=== PATIENT | male | born 1965 | race Caucasian/White ===

== ENCOUNTER 2023-07-23 03:48 | Emergency (ER) | payer MEDICARE, SELFPAY ==
[2023-07-23 03:49] VITALS: BP 169/109; PULSE 72; RESP 16; TEMP 36.5; O2SAT 100
--- NOTE | 2023-07-23 03:54 | ED_ITS ---
HPI - General Adult General Stated complaint: PSYCH Time Seen by Provider: 07/23/23 03:49 History of Present Illness HPI narrative: Patient arrived by ambulance from [place] after requesting to come to [place]. He had called our hospital main number earlier asking if he could come to the hospital to get his psych meds refilled. Then he called 911 to have the ambulance bring him to our ED - he refused to go to [place] ED. In the ambulance he initially told them that he was depressed and anxious and needed his medications refilled. But on the way he became argumentative and angry, the EMS crew told us, without any provocation. On arrival to our ED he is initially evasive, won't answer questions and won't let us interview him. The he said in front of the nurses and I that he was anxious, depressed and just want to - just let me . When I told him that we would start a psych assessment and work on getting him help, possibly admitted, then he became angry. Then he demanded that we arrange a ride for him back to [place]. When I refused he demanded to talk to the police. He told us he would not answer any of our questions and refused to let us examine him after we got vital signs. Exam Narrative Exam Narrative: Patient refuses to allow me to exam him. BP 169/109, P 72, RR 16, T 97.7F, POx 100% on RA Medical Decision Making MDM Narrative Medical decision making narrative: Patient refusing any care. He wanted to call the police so we gave him a phone. He then called the police, who called our information security associate to see if we are ok. The patient said he wants to leave and will wait in the lobby for a ride home. Discharge Plan Discharge Chief Complaint: Psychiatric Symptoms Clinical Impression: Outbursts of explosive behavior, Depression Patient Disposition: Home, Self-Care Time of Disposition Decision: 04:05 Instructions: Depression (ED) Stand Alone Forms: Portal Instructions
--- NOTE | 2023-07-23 03:57 | PC.NURSE ---
Patient arrived via EMS with complaint of being depressed and being out of his Effexor 25mg x3 days. EMS reported that when they arrived to his house, he ambulated out to them and was cooperative and calm for part of the transport, then his demeanor changed and he became slightly aggressive and agitated. When the patient arrived to the ED, he would not speak or answer questions, other than to state that he could not move himself over to the cart. Patient allowed us to get a set of vitals, and did speak to state that he takes Effexor and that is the medication he is out of. At this time, Dr Aleman entered the room and began to ask the patient what brought him to the ER [facility]. The patient stated that he is out of his meds, does not feel good, is sick and needs medications. He wants to and just wants us to let him . Dr Aleman asked him about psychiatric care, patient states he does have a psychiatrist that is through [facility]. Dr Aleman stated that we would need to get him admitted for inpatient care and would set him up to speak to someone at [facility]. At this point, the patient became very angry, stated that he refused to be placed as inpatient anywhere, he did not want the care to continue any further, he wanted to be discharged and go home. Dr. Aleman attempted to do a physical exam, the patient told Dr Aleman to stay away from him, he was refusing care and did not want anyone to touch him. The patient said that he needed a ride home, Dr Aleman said he would have to find his own ride since he will be leaving [place], the patient asked to use a phone so he could call the police and report us for refusing to give him a a ride home. The patient is provided a phone. This entire encounter is witnessed by this RN as well as the other RNs on shift at this time. Security and compressed yeast supervisor are called.
== END 2023-07-23 04:20 | disposition home or self-care (01) ==
PROVIDERS: Emergency Provider Emergency Medicine
DX: F32.A Depression, unspecified (principal); F91.8 Other conduct disorders
CPT/HCPCS: 99283

== ENCOUNTER 2023-09-06 02:40 | Emergency (ER) | payer MEDICARE, SELFPAY ==
[2023-09-06] VITALS (21 sets, daily range): BP systolic 113; BP diastolic 79; PULSE 86–105; RESP 9–24; TEMP 36.6; O2SAT 96–100; BMI 25.8
--- NOTE | 2023-09-06 02:41 | ECG_ITS ---
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
--- OUTSIDE RECORDS SUMMARY | 2023-09-06 02:50 | XMS_ITS | CCD ---
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 Name Role Phone FABRIZIO SANTORO Unavailable Unavailable FABRIZIO SANTORO Unavailable Unavailable FABRIZIO SANTORO Unavailable Unavailable NO FAMILY, PHYSICIAN Primary Care Provider Unava ilable TRAVIS Tee Emergency Provider MD Carlos Navarretemi Admit Provider MD Carlos Navarretemi Attending Provider [phone] Leland Finney Attending Unavailab Tanner Montanez Admitting Unavailable NO FAMILY, PHYSICIAN Primary Care Unavailable Kelly Douglas Consulting Unavailable Sheryl Salazar Consulting Unavailable Mitzi Guadarrama Consulting Unavailable Marialuisa Perla Consulting Unavailable Jacqueline Adler Consulting Unavailable Debora Kenny Consulting Unavailable Angie Andry K Consulting Unavailable DialShannan saucedaa M Consulting Unavailable Isaias Rodriguez Consulting Unavailable Poli Lopez Consulting Unavailable Roddy Serrano Consulting UnavailRodo Colemna Consulting Unavailable Kassie Aj Consulting Unavailable [place] Consulting Unavailable Urvashi Mckeon Consulting UnavailAmos Ronquillo Consulting Unavailable Gildardo Orellana Consulting Unavailable Beto Sousa Consulting Unavailable Shelly Castellanos Consulting Unavailable Felix Ochoa Consulting Unavailable Conor Parks Consulting Unavailable Casey Osborne Consulting Unavailable Martine Hughes Consulting Unavailable Dami Hirsch Consulting Unavailable Gustabo Helton Consulting Unavailab Bernabe Crowder Consulting Unavailable Mariano Jean Consulting Unavailable Almludmilali, Khaled Consulting Unavailable Ron, Chandana Consulting Unavailable Ayanna Greco Consulting Unavailable Portillo Decker Consulting Unavailable MiniMilton mckee Consulting Unavailable ObZainab patino Consulting Unavailable Dami Thapa Consulting Unavailable DaromaEssie jara Consulting Unavailable Angela Arboleda Consulting Unavailable Annie Cotter Consulting Unavailable Reg Church Consulting Unavailable Timoteo Hung Consulting Unavailable Ila Andrew Consulting Unavailable Carla Steiner Consulting Unavailable Yeimi Whaley Consulting Unavailable NO PCP, NO PCP Primary Care Unavailable CARLITO DIALLO Attending Unavailable CARLITO DIALLO Attending Unavailable CARLITO DIALLO Referring Unavailable NO PCP, NO PCP Primary Care Unavailable NO PCP, NO PCP Primary Care Unavailable ALEXIA JIANG Attending Unavailable NO PCP, NO PCP Primary Care Unavailable MILES CORNEJO Attending Unavailabl e MILES CORNEJO Referring Unavailabl e NO PCP, NO PCP Primary Care Unavailable MILES CORNEJO Attending Unavailabl e MILES CORNEJO Referring Unavailabl e NO PCP, NO PCP Primary Care Unavailable NO PCP, NO PCP Primary Care Unavailable MILES CORNEJO Attending Unavailabl e PAULO AYOUB Admitting Unavailab le Allergies Allergy Classification Reported Allergen(s) Allergy Type Date of Onset Reaction(s) Facility (1 source) bee venom Drug allergy (disorder) 11-26-2016 [facility] (1 source) danazol Drug Allergy 11-26-2016 [facility] (1 source) lamoTRIgine Drug Allergy 11-26-2016 [facility] (1 source) PARoxetine Drug Allergy 11-26-2016 [facility] (1 source) sertraline Drug Allergy 11-26-2016 [facility] (1 source) venlafaxine Drug Allergy 11-26-2016 [facility] (1 source) Ragweed Drug allergy (disorder) 11-26-2016 [facility] (4 sources) lamoTRIgine; Translations: [lamotrigine] Drug Allergy 12-01-2016 [facility] (4 sources) Morphine; Translations: [morphine] Drug Allergy 08-08-2023 [facility] (1 source) ARIPiprazole; Translations: [ARIPIPRAZOLE] Drug Allergy 12-01-2016 [facility] (1 source) PARoxetine; Translations: [PAROXETINE] Drug Allergy 12-01-2016 [facility] (1 source) Sertraline; Translations: [SERTRALINE HCL] Drug Allergy 12-01-2016 [facility] (1 source) Valproate; Translations: [DIVALPROEX SODIUM] Drug Allergy 12-01-2016 [facility] Medications Current Medications Medication Drug Class(es) Dates Sig (Normalized) Sig (Original) aspirin 81 mg chewable tablet (1 source) Platelet Aggregation Inhibitor, Nonsteroidal Anti-inflammatory Drug Start: 08-22-2023 take 1 tablet by mouth once daily Aspirin (Children's Aspirin) 81 mg Tablet,Chewable Active 81 MG PO Daily August 22, 2023 12:00am atorvastatin 40 mg oral tablet (1 source) HMG-CoA Reductase Inhibitor Start: 08-22-2023 take 40 mg by mouth once daily in the evening Atorvastatin Active 40 MG PO Every evening August 22, 2023 12:00am cholecalciferol 0.01 mg oral tablet (1 source) Vitamin D Start: 08-21-2023 take 1 tablet by mouth once daily Cholecalciferol (Vitamin D3) (Vitamin D3) 10 mcg (400 unit) Tablet Active 20 MCG PO Daily 60 August 21, 2023 12:00am 24 hr paliperidone 3 mg extended release oral tablet (1 source) Atypical Antipsychotic Start: 08-21-2023 take 3 mg by mouth once daily Paliperidone Active 3 MG PO Daily August 21, 2023 12:00am venlafaxine 25 mg oral tablet (3 sources) Serotonin and Norepinephrine Reuptake Inhibitor Start: 08-16-2023 End: 08-21-2023 take 25 mg by mouth twice daily Venlafaxine Active 25 MG PO Twice daily 60 August 22, 2023 12:00am Problems Problem Classification Problem Date Documented Date Episodic/Chronic Administrative/social admission (1 source) Encounter for issue of repeat prescription; Translations: [Encounter for issue of repeat prescription] Onset: 09-01-2023 Episodic Coronary atherosclerosis and other heart disease (4 sources) Atherosclerotic heart disease of koi coronary artery without angina pectoris; Translations: [History of myocardial infarction] Onset: 11-28-2016 08-21-2023 Chronic Mood disorders (2 sources) Depressive disorder; Translations: [Depression] 08-17-2023 Chronic Mood disorders (5 sources) Major depressive disorder, single episode, unspecified; Translations: [Mood disorders] Onset: 11-26-2016 Nonspecific chest pain (2 sources) Chest pain, unspecified; Translations: [Chest pain] Onset: 08-08-2023 Episodic Other injuries and conditions due to external causes (1 source) Cold exposure Onset: 09-02-2023 Episodic Other injuries and conditions due to external causes (1 source) Effect of reduced temperature, unspecified, initial encounter; Translations: [Effect of reduced temperature, unspecified, initial encounter] Onset: 08-08-2023 Episodic Other screening for suspected conditions (not mental disorders or infectious disease) (4 sources) Thyroid function tests abnormal; Translations: [Abnormal results of thyroid function studies] Onset: 08-16-2023 08-19-2023 Episodic Residual codes; unclassified (2 sources) Restlessness and agitation; Translations: [Restlessness and agitation] 08-16-2023 Chronic Residual codes; unclassified (3 sources) Restlessness and agitation; Translations: [Other and unspecified special symptoms or syndromes, not elsewhere classified] Onset: 08-16-2023 08-16-2023 Chronic Residual codes; unclassified (2 sources) Hallucinations; Translations: [Hallucinations, unspecified] 08-16-2023 Episodic Residual codes; unclassified (2 sources) Hallucinations, unspecified; Translations: [Hallucinations] 08-16-2023 Episodic Schizophrenia and other psychotic disorders (3 sources) Psychotic disorder; Translations: [Unspecified psychosis not due to a substance or known physiological condition] Onset: 08-16-2023 08-17-2023 Chronic Unclassified (1 source) Medical Screening Onset: 09-04-2023 Unclassified (1 source) Med Refill Onset: 09-01-2023 Unclassified (1 source) ill Onset: 08-08-2023 Results Test Name Value Interpretation Reference Range Facility BASIC METABOLIC PANLon 09-04 Anion gap [Moles/Vol] 10 mmol/L Normal 5-15 [facility] Comment on above: Performed By: #### C BCA, BMP, 55195-9 #### [facility] ([id number]) [address] [place] [address] 36053 Calcium [Mass/Vol] 8.9 mg/dL Normal 8.5-10.5 [facility] Comment on above: Performed By: #### C JEAN MARIE KAPOOR, 76061-5 #### [facility] ([id number]) [address] [place] [address] 98233 Chloride [Moles/Vol] 100 mmol/L Normal 98-109 [facility] Comment on above: Performed By: #### C JEAN MARIE KAPOOR, 74447-9 #### [facility] ([id number]) [address] [place] [address] 85503 CO2 [Moles/Vol] 29 mmol/L Normal 22-32 [facility] Comment on above: Performed By: #### C JEAN MARIE KAPOOR, 10699-5 #### [facility] ([id number]) [address] [place] [address] 13419 Creatinine [Mass/Vol] 0.95 mg/dL Normal 0.70-1.20 [facility] Comment on above: Result Comment: METH OD TRACEABLE TO IDMS STANDARD Performed By: #### C JEAN MARIE KAPOOR, 88730-9 #### [facility] ([id number]) [address] [place] [address] 06244 eGFR (CKD-EPI) NON-RACE DEPENDENT >90 Normal >59 [facility] Comment on above: Result Comment: Reported eGFR is based on the CKD-EPI 2020 equation that does not use a race coefficient. Performed By: #### C JEAN MARIE KAPOOR, 86661-0 #### [facility] ([id number]) [address] [place] [address] 22037 Glucose [Mass/Vol] 144 mg/dL High 65-99 [facility] Comment on above: Performed By: #### C JEAN MARIE KAPOOR, 05991-9 #### [facility] ([id number]) [address] [place] [address] 51695 Potassium [Moles/Vol] 3.5 mmol/L Normal 3.5-5.0 [facility] Comment on above: Performed By: #### C JEAN MARIE KAPOOR, 36645-0 #### [facility] ([id number]) [address] [place] [address] 97184 Sodium [Moles/Vol] 139 mmol/L Normal 134-146 [facility] Comment on above: Performed By: #### C EMELIA, JEAN MARIE, 55936-0 #### [facility] ([id number]) [address] [place] [address] 43473 Urea nitrogen [Mass/Vol] 15 mg/dL Normal 5-23 [facility] Comment on above: Performed By: #### JEAN MARIE King BCA, 46623-7 #### [facility] ([id number]) [address] [place] [address] 76437 CBC AND AUTO DIFFon 09-04-19 24 ABSOLUTE BASOPHIL 0.1 X10E9/L Normal 0.0-0.2 [facility] Comment on above: Performed By: #### Christine KAPOOR, BMP, 37705-9 #### [facility] ([id number]) [address] [place] [address] 71229 ABSOLUTE NEUTROPHIL 6.2 X10E9/L Normal 1.5-6.6 [facility] Comment on above: Performed By: #### C EMELIA, BMP, 04505-0 #### [facility] ([id number]) [address] [place] [address] 37517 Basophils/100 WBC (Bld) 1.3 % Normal [facility] Comment on above: Performed By: #### Christine KAPOOR, BMP, 93516-2 #### [facility] ([id number]) [address] [place] [address] 07125 Eosinophils (Bld) [#/Vol] 0.3 10*3/uL Normal 0.0-0.4 [facility] Comment on above: Performed By: #### JEAN MARIE King BCA, 27278-0 #### [facility] ([id number]) [address] [place] [address] 05198 Eosinophils/100 WBC (Bld) 3.5 % Normal [facility] Comment on above: Performed By: #### Christine KAPOOR [facility], 24602-4 #### [facility] ([id number]) [address] [place] [address] 11680 Erythrocyte distribution width (RBC) [Ratio] 14.2 % Normal 11.5-15.0 [facility] Comment on above: Performed By: #### JEAN MARIE King BCA, 21674-2 #### [facility] ([id number]) [address] [place] [address] 80323 Hematocrit (Bld) [Volume fraction] 40.2 % Normal 39-49 [facility] Comment on above: Performed By: #### Christine KAPOOR [facility], 17511-1 #### [facility] ([id number]) [address] [place] [address] 11887 Hemoglobin (Bld) [Mass/Vol] 13.9 g/dL Normal 13.0-17.0 [facility] Comment on above: Performed By: #### JEAN MARIE King BCA, 70466-5 #### [facility] ([id number]) [address] [place] [address] 33974 Lymphocytes (Bld) [#/Vol] 1.8 10*3/uL Normal 1.0-3.5 [facility] Comment on above: Performed By: #### JEAN MARIE King BCA, 99350-8 #### [facility] ([id number]) [address] [place] [address] 89077 Lymphocytes/100 WBC (Bld) 20.0 % Normal [facility] Comment on above: Performed By: #### JEAN MARIE King BCA, 06943-4 #### [facility] ([id number]) [address] [place] [address] 39856 MCH (RBC) [Entitic mass] 31.7 pg Normal 27-34 [facility] Comment on above: Performed By: #### JEAN MARIE King BCA, 44300-9 #### [facility] ([id number]) [address] [place] [address] 79850 MCHC (RBC) [Mass/Vol] 34.6 g/dL Normal 32-36 [facility] Comment on above: Performed By: #### JEAN MARIE King BCA, 84853-4 #### [facility] ([id number]) [address] [place] [address] 70465 MCV (RBC) [Entitic vol] 92 fL Normal 80-100 [facility] Comment on above: Performed By: #### JEAN MARIE King BCA, 55916-9 #### [facility] ([id number]) [address] [place] [address] 26814 Monocytes (Bld) [#/Vol] 0.5 10*3/uL Normal 0-0.9 [facility] Comment on above: Performed By: #### JEAN MARIE King BCA, 94779-7 #### [facility] ([id number]) [address] [place] [address] 63235 Monocytes/100 WBC (Bld) 5.9 % Normal [facility] Comment on above: Performed By: #### JEAN MARIE King BCA, 22529-6 #### [facility] ([id number]) [address] [place] [address] 07473 Neutrophils/100 WBC (Bld) 69.3 % Normal [facility] Comment on above: Performed By: #### JEAN MARIE King BCA, 70881-5 #### [facility] ([id number]) [address] [place] [address] 24732 Platelet mean volume (Bld) [Entitic vol] 7.0 fL Normal 7-12 [facility] Comment on above: Performed By: #### C JEAN MARIE KAPOOR, 83878-1 #### [facility] ([id number]) [address] [place] [address] 33998 Platelets (Bld) [#/Vol] 320 10*3/uL Normal 150-450 [facility] Comment on above: Performed By: #### C JEAN MARIE KAPOOR, 51756-5 #### [facility] ([id number]) [address] [place] [address] 87605 RBC COUNT 4.39 X10E12/L Normal 4.10-5.70 [facility] Comment on above: Performed By: #### C JEAN MARIE KAPOOR, 08621-5 #### [facility] ([id number]) [address] [place] [address] 84422 WBC (Bld) [#/Vol] 8.9 10*3/uL Normal 4.0-11.0 [facility] Comment on above: Performed By: #### C JEAN MARIE KAPOOR, 86014-1 #### [facility] ([id number]) [address] [place] [address] 35024 TROPONIN Ion 09-04-2023 Troponin I.cardiac [Mass/Vol] 0.11 ng/mL High 0.00-0.04 [facility] Comment on above: Result Comment: Concentrations greater than or equal to 0.05 ng/ml are considered elevated. Elevations of Troponin may be due to causes other than myocardial ischemia. Recommend serial Troponin testing be performed. Performed By: #### 1 0839-9 #### [facility] ([id number]) [address] [place] [address] Troponin I.cardiac [Mass/Vol] 0.09 ng/mL High 0.00-0.04 [facility] Comment on above: Result Comment: Concentrations greater than or equal to 0.05 ng/ml are considered elevated. Elevations of Troponin may be due to causes other than myocardial ischemia. Recommend serial Troponin testing be performed. Performed By: #### C EMELIA, [facility], 44627-0 #### [facility] ([id number]) [address] [place] [address] 86471 XR CHEST 1 VWon 09-04-2023 XR CHEST 1 VW XR CHEST 1 VW Clinical History: Chest pain. Portable Upright chest: 09/04/2023 Comparison: 09/02/2023 Findings: A single portable view of the chest was obtained. There is no confluent alveolar opacity. No pneumothorax or pleural effusion is present. Mediastinal contours are within normal limits. IMPRESSION: No acute infiltrate. Finalized by Clyde Holland MD on 09/04/2023 7:06 AM Normal [facility] XR CHEST 1 VWon 09-02-2023 XR CHEST 1 VW XR CHEST 1 VW Single view chest History:cough Difficulty breathing, shortness of breath Comparison: 08/08/2023 Findings: Single portable view of the chest. Stable cardiomediastinal silhouette. No focal opacity, effusion or pneumothorax. Impression: No evidence of acute cardiopulmonary process. Finalized by Felix Nickerson MD on 09/02/2023 2:12 AM Normal [facility] ECG 12 lead ECGon 08-20-2023 ECG 12 lead ECG [facility] [place] [address] [place] [address] 16816 Electrocardiograph Report Signed Patient: Vincent Javier MR#: [id number] 70 : 1965 Acct:[id number] Age/Sex: 57 / M ADM Date: 08/16/23 Loc: 1S Room: [address] [place] [address] Type: ADM IN Attending Dr: Tanner Navarrete MD Ordering Provider: Leland Finney MD Date of Service: 08/20/23 ECG/ECG 12 lead ECG: SOB, chest pain Copies to: Test Reason : Blood Pressure : / mmHG Vent. Rate : 082 BPM Atrial Rate : 082 BPM P-R Int : 176 ms QRS Dur : 090 ms QT Int : 378 ms P-R-T Axes : 059 061 048 degrees QTc Int : 441 ms Sinus rhythm with premature atrial complexes Otherwise normal ECG When compared with ECG of 17-AUG-2023 08:52, No significant change was found Confirmed by Zainab Huntley ([id number]) on 08/20/2023 4:41:03 PM Referred By: Electronically Signed By:Zainab Huntley Transcribed By: MUS Signed By Felix Rollins MD 08/20/23 1641 Normal [facility] Thyroid Antibodies TPO+Tg Ab on 08-20-2023 Antithyroglobulin Ab 4.9 High 0.0-0.9 [facility] Comment on above: Result Comment: Thyr oglobulin Antibody measured by [employer] Performed at: [facility] [address] [id number] Certified Lactation Educator: Sohail Swartz PhD, Phone: [phone] PERFORMED BY: [address] [place] [address] PATHOLOGIST VACUUM TECHNICIAN NALINI GRAHAM M.D. Performed By: #### T HY AB #### [facility] , Thyroid Peroxidase Antibodies 290 High 0-34 [facility] Comment on above: Performed By: #### T HY AB #### [facility] , Troponin I High Sensitivityo n 08-20-2023 Troponin I High Sensitivity 6.7 pg/mL Normal 0.0-20.0 [facility] Comment on above: Result Comment: PERF ORMED BY: [facility] [address] [place] [address] PATHOLOGIST VACUUM TECHNICIAN NALINI GRAHAM M.D. Performed By: #### H S TROP #### [facility] [address] [place] [address] ECG 12 lead ECGon 08-17-2023 ECG 12 lead ECG [facility] [place] [address] [place] [address] Electrocardiograph Report Signed Patient: Vincent Javier MR#: [id number] 71 : 1965 Acct:[id number] Age/Sex: 57 / M ADM Date: 08/16/23 Loc: Room: [address] [place] [address] Type: ADM IN Attending Dr: Tanner Navarrete MD Ordering Provider: Tanner Navarrete MD Date of Service: 08/17/23 ECG/ECG 12 lead ECG: medications Copies to: Test Reason : Blood Pressure : / mmHG Vent. Rate : 082 BPM Atrial Rate : 082 BPM P-R Int : 160 ms QRS Dur : 088 ms QT Int : 348 ms P-R-T Axes : 052 049 033 degrees QTc Int : 406 ms Sinus rhythm with premature atrial complexes Otherwise normal ECG When compared with ECG of 24-NOV-2013 18:36, Non-specific change in ST segment in Inferior leads Nonspecific T wave abnormality no longer evident in Lateral leads Confirmed by Zainab Huntley ([id number]) on 08/17/2023 11:33:35 AM Referred By: Electronically Signed By:Zainab Huntley Transcribed By: MUS Signed By Felix Rollins MD 08/17/23 1133 Normal [facility] Free T4 (Free Thyroxine)on 0 08-17-2023 Free T4 [Mass/Vol] 0.62 ng/dL Normal 0.61-1.12 [facility] Comment on above: Performed By: #### T 4F, TSH3 wRFLX, [id number], LIPID #### [facility] [address] [place], [place] [id number] [facility] Lipid Panelon 08-17-2023 Cholesterol [Mass/Vol] 167 mg/dL Normal 140-200 [facility] Comment on above: Result Comment: Chol less than 200 mg/dl low risk Chol 201-239 mg/dl borderline risk Chol 240 mg/dl and greater high risk Performed By: #### T 4F, TSH3 wRFLX, [id number], LIPID #### [facility] [address] [id number] [facility] Cholesterol in HDL [Mass/Vol] 46 mg/dL Normal 23-92 [facility] Comment on above: Result Comment: HDL CHOL ATP-III CLASSIFICATION Cardiovascular Risk HDL > or equal to 60 mg/dL LOW HDL < 40 mg/dL HIGH Performed By: #### T 4F, TSH3 wRFLX, [id number], LIPID #### [facility] [address] Cholesterol.total/Choles terol in HDL [Mass ratio] 3.6 {ratio} Normal <5.0 [facility] Comment on above: Performed By: #### T 4F, TSH3 wRFLX, [id number], LIPID #### [facility] [address] LDL Cholesterol,Calculated 99 mg/dL Normal 0-100 [facility] Comment on above: Result Comment: LDL ATP III CLASSIFICATION LDL less than 100 mg/dL Optimal LDL 100-129 mg/dL Near or above optimal LDL 130-159 mg/dL Borderline high LDL 160-189 mg/dL High LDL greater than 189 mg/dL Very high Performed By: #### T 4F, TSH3 wRFLX, [id number], LIPID #### [facility] [address] Triglyceride w/Reflex 108 mg/dL Normal 0-149 [facility] Comment on above: Result Comment: TRIG ATP III CLASSIFICATION TRIG less than 150 mg/dL Normal TRIG 150-199 mg/dL Borderline high TRIG 200-500 mg/dL High TRIG greater than 500 mg/dL Very high Standard traceable to the Center for Disease Conrtrol and Prevention (CDC) test method. Performed By: #### T 4F, TSH3 wRFLX, [id number], LIPID #### [facility] [address] [id number] [facility] VLDL CHOLESTEROL 21 mg/dL Normal [facility] Comment on above: Performed By: #### T 4F, TSH3 wRFLX, [id number], LIPID #### [facility] [address] [place] [address] Thyroid Stim Hormone w/Rflxo n 08-17-2023 Thyroid Stim Hormone w/Rflx 34.84 u[iU]/mL High 0.45-5.33 [facility] Comment on above: Performed By: #### T 4F, TSH3 wRFLX, [id number], LIPID #### [facility] [address] Vitamin D 25 Hydroxy Totalon 08-17-2023 Vitamin D 25 Hydroxy Total 19.0 ng/mL Low 30-100 [facility] Comment on above: Result Comment: JAKOB MIN D STATUS 25(OH)VITAMIN D RANGE (ng/mL) Deficient <20 Insufficient 20 to <30 Sufficient 30 to 100 Reference: Kofi MF,Ana NC, Abby GEE, et al. Evaluation,treatment, and prevention of vitamin D deficiency; an Endocrine Society clinical practice guideline. JCEM. 2010; 96(7):1911-30. PERFORMED BY: [place] [address] PATHOLOGIST VACUUM TECHNICIAN NALINI GRAHAM M.D. Performed By: #### T HY AB #### [facility] , Alanine aminotransferase [En zymatic activity/volume] in Serum or PlasmaOrdered By: Mounika Tee on 08-16-2023 ALT [Catalytic activity/Vol] 23 U/L 7-52 [facility] Albumin [Mass/volume] in Ser um or Plasma by Bromocresol green (BCG) dye binding methoOrdered By: Mounika Tee on 08-16-2023 Albumin BCG dye [Mass/Vol] 4.0 g/dL 3.5-5.7 [facility] Alkaline phosphatase [Enzyma tic activity/volume] in Serum or PlasmaOrdered By: Mounika Tee on 08-16-2023 ALP [Catalytic activity/Vol] 63 U/L 34-104 [facility] Amphetamine Screen Ql (U)Ord ered By: Mounika Tee on 08-16-2023 Amphetamines Ql (U) Negative Negative [facility] Aspartate aminotransferase [ Enzymatic activity/volume] in Serum or PlasmaOrdered By: Mounika Tee on 08-16-2023 AST [Catalytic activity/Vol] 16 U/L 13-39 [facility] Barbiturates [Presence] in U rine by Screen methodOrdered By: Mounika Tee on 08-16-2023 Barbiturates Screen Ql (U) Negative Negative [facility] Basophils Auto (Bld) [#/Vol] Ordered By: Mounika Tee on 08-16-2023 Basophils (Bld) [#/Vol] 0.1 10*3/uL 0.0-0.2 [facility] Basophils/100 WBC Auto (Bld) Ordered By: Mounika Tee on 08-16-2023 Basophils/100 WBC (Bld) 1.2 % . [facility] Benzodiazepines Screen Ql (U )Ordered By: Mounika Tee on 08-16-2023 Benzodiazepines Ql (U) Negative Negative [facility] Benzoylecgonine [Presence] i n Urine by Screen methodOrdered By: Mounika Tee on 08-16-2023 Benzoylecgonine Screen Ql (U) Negative Negative [facility] Bilirubin Test strip Ql (U)O rdered By: Mounika Tee on 08-16-2023 Bilirubin Ql (U) Negative Negative [facility] Bilirubin.total [Mass/volume ] in Serum or PlasmaOrdered By: Mounika Tee on 08-16-2023 Bilirubin [Mass/Vol] 0.4 mg/dL 0.3-1.0 [facility] Calcium [Mass/volume] in Ser um or PlasmaOrdered By: Mounika Tee on 08-16-2023 Calcium [Mass/Vol] 8.9 mg/dL 8.6-10.3 [facility] Cannabinoids [Presence] in U rine by Screen methodOrdered By: Muonika Tee on 08-16-2023 Cannabinoids Screen Ql (U) Positive Negative [facility] Comment on above: These are unconfirme d results and should not be used for legal purposes. Drug Cut-Off Concentration: AMPH 1000 ng/mL POONAM 200 ng/mL DANNY 200 ng/mL COCM 300 ng/mL OP 300 ng/mL PCP 25 ng/mL THC 20 ng/mL Carbon dioxide, total [Moles /volume] in Serum or PlasmaOrdered By: Mounika Tee on 08-16-2023 CO2 [Moles/Vol] 24.9 mmol/L 21.0-31.0 [facility] Chloride [Moles/volume] in S yu or PlasmaOrdered By: Mounika Tee on 08-16-2023 Chloride [Moles/Vol] 106 mmol/L 98-107 [facility] Color Auto (U)Ordered By: Deejay Tee on 08-16-2023 Color (U) Yellow Yellow [facility] Complete Blood Count Auto Di ffon 08-16-2023 Basophils (Bld) [#/Vol] 0.1 10*3/uL Normal 0.0-0.2 [facility] Comment on above: Result Comment: PERF ORMED BY: [place] [address] PATHOLOGIST VACUUM TECHNICIAN NALINI GRAHAM M.D. Performed By: #### C MP, CBC, ETOH #### [address] Basophils/100 WBC (Bld) 1.2 % Normal . [facility] Comment on above: Performed By: #### C MP, CBC, ETOH #### [facility] [address] [place] [address] [place] Eosinophils (Bld) [#/Vol] 0.2 10*3/uL Normal 0.0-0.45 [facility] Comment on above: Performed By: #### C MP, CBC, ETOH #### [place] [address] [place] Eosinophils/100 WBC (Bld) 3.0 % Normal . [facility] Comment on above: Performed By: #### C MP, CBC, ETOH #### [place] [address] [place] Erythrocyte distribution width (RBC) [Ratio] 14.3 % Normal 12.0-14.8 [facility] Comment on above: Performed By: #### C MP, CBC, ETOH #### [address] Hematocrit (Bld) [Volume fraction] 41.2 % Normal 38.8-50.0 [facility] Comment on above: Performed By: #### C MP, CBC, ETOH #### [address] Hemoglobin (Bld) [Mass/Vol] 14.1 g/dL Normal 13.0-17.0 [facility] Comment on above: Performed By: #### C MP, CBC, ETOH #### [address] Lymphocytes (Bld) [#/Vol] 2.3 10*3/uL Normal 1.00-4.8 [facility] Comment on above: Performed By: #### C MP, CBC, ETOH #### [address] Lymphocytes/100 WBC (Bld) 32.9 % Normal . [facility] Comment on above: Performed By: #### C MP, CBC, ETOH #### [address] MCH (RBC) [Entitic mass] 31.3 pg Normal 27.5-35.2 [facility] Comment on above: Performed By: #### C MP, CBC, ETOH #### [address] MCV (RBC) [Entitic vol] 91.9 fL Normal 83.5-101 [facility] Comment on above: Performed By: #### C MP, CBC, ETOH #### [address] Mean Corpuscular HGB Conc 34.1 g/dL Normal 32.5-35.6 [facility] Comment on above: Performed By: #### C MP, CBC, ETOH #### [address] Monocytes (Bld) [#/Vol] 0.4 10*3/uL Normal 0.0-0.8 [facility] Comment on above: Performed By: #### C MP, CBC, ETOH #### [facility] [address] Monocytes/100 WBC (Bld) 20.63 % High 0.00-20.00 [facility] Comment on above: Result Comment: For adults in ED, MDW > 20.0 may be associated with a higher risk of sepsis during the first 12 hrs of hospital admission Performed By: #### C MP, CBC, ETOH #### [facility] [address] Monocytes/100 WBC (Bld) 5.6 % Normal . [facility] Comment on above: Performed By: #### C MP, CBC, ETOH #### [facility] [address] [place] [address] [place] Neutrophils (Bld) [#/Vol] 4.0 10*3/uL Normal 1.8-7.7 [facility] Comment on above: Performed By: #### C MP, CBC, ETOH #### [facility] [address] [place] [address] [place] Neutrophils/100 WBC (Bld) 57.3 % Normal . [facility] Comment on above: Performed By: #### C MP, CBC, ETOH #### [facility] [address] [place] [address] [place] NRBC% 0.0 /100{WBC} Normal 0-0.5 [facility] Comment on above: Performed By: #### C MP, CBC, ETOH #### [facility] [address] [place] [address] [place] Platelet mean volume (Bld) [Entitic vol] 7.1 fL Normal 6.6-10.1 [facility] Comment on above: Performed By: #### C MP, CBC, ETOH #### [facility] [address] [place] [address] [place] Platelets (Bld) [#/Vol] 301 10*3/uL Normal 150-450 [facility] Comment on above: Performed By: #### C MP, CBC, ETOH #### [address] RBC (Bld) [#/Vol] 4.49 10*6/uL Normal 3.90-5.60 [facility] Comment on above: Performed By: #### C MP, CBC, ETOH #### [address] WBC (Bld) [#/Vol] 6.9 10*3/uL Normal 4.1-10.5 [facility] Comment on above: Performed By: #### C MP, CBC, ETOH #### [address] Comprehensive Metabolic Pane aldair 08-16-2023 Albumin [Mass/Vol] 4.0 g/dL Normal 3.5-5.7 [facility] Comment on above: Performed By: #### C MP, CBC, ETOH #### [address] Albumin/Globulin [Mass ratio] 1.4 {ratio} Normal [facility] Comment on above: Performed By: #### C MP, CBC, ETOH #### [address] ALP [Catalytic activity/Vol] 63 U/L Normal 34-104 [facility] Comment on above: Performed By: #### C MP, CBC, ETOH #### [address] ALT [Catalytic activity/Vol] 23 U/L Normal 7-52 [facility] Comment on above: Performed By: #### C MP, CBC, ETOH #### [address] Anion gap [Moles/Vol] 10.8 mmol/L Normal 6.0-15.0 [facility] Comment on above: Performed By: #### C MP, CBC, ETOH #### [address] AST [Catalytic activity/Vol] 16 U/L Normal 13-39 [facility] Comment on above: Performed By: #### C MP, CBC, ETOH #### [facility] [address] Bilirubin [Mass/Vol] 0.4 mg/dL Normal 0.3-1.0 [facility] Comment on above: Performed By: #### C MP, CBC, ETOH #### [facility] [address] Calcium [Mass/Vol] 8.9 mg/dL Normal 8.6-10.3 [facility] Comment on above: Performed By: #### C MP, CBC, ETOH #### [facility] [address] Chloride [Moles/Vol] 106 mmol/L Normal 98-107 [facility] Comment on above: Performed By: #### C MP, CBC, ETOH #### [facility] [address] CO2 [Moles/Vol] 24.9 mmol/L Normal 21.0-31.0 [facility] Comment on above: Performed By: #### C MP, CBC, ETOH #### [facility] [address] Creatinine [Mass/Vol] 0.73 mg/dL Normal 0.70-1.30 [facility] Comment on above: Performed By: #### C MP, CBC, ETOH #### [facility] [address] [place] [address] [place] Creatinine Clr Calc Pharmacy 116.67 Normal [facility] Comment on above: Result Comment: PERF ORMED BY: [place] [address] PATHOLOGIST VACUUM TECHNICIAN NALINI GRAHAM M.D. Performed By: #### C MP, CBC, ETOH #### [place] [address] [place] GFR/1.73 sq M.predicted MDRD (S/P/Bld) [Vol rate/Area] mL/min/{1.73_m2} Normal [facility] Comment on above: Performed By: #### C MP, CBC, ETOH #### [facility] [address] [place] [address] [place] Globulin (S) [Mass/Vol] 2.9 g/dL Normal [facility] Comment on above: Performed By: #### C MP, CBC, ETOH #### [facility] [address] [place] [address] [place] Glucose [Mass/Vol] 96 mg/dL Normal 70-100 [facility] Comment on above: Result Comment: [facility] Glucose Reference Range is dependent on time and content of last meal. Glucose of more than 200 mg/dL in a nonstressed, ambulatory subject supports the diagnosis of Diabetes Mellitus. ADA recommended reference range Performed By: #### C MP, CBC, ETOH #### [facility] [address] Potassium [Moles/Vol] 3.7 mmol/L Normal 3.5-5.1 [facility] Comment on above: Performed By: #### C MP, CBC, ETOH #### [facility] [address] [place] [address] [place] Protein [Mass/Vol] 6.9 g/dL Normal 6.4-8.9 [facility] Comment on above: Performed By: #### C MP, CBC, ETOH #### [place] [address] [place] Sodium [Moles/Vol] 138 mmol/L Normal 136-145 [facility] Comment on above: Performed By: #### C MP, CBC, ETOH #### [facility] [address] [place] [id number] [place] Urea nitrogen [Mass/Vol] 9 mg/dL Normal 7-25 [facility] Comment on above: Performed By: #### C MP, CBC, ETOH #### [place] [address] [place] Creatinine [Mass/volume] in Serum or PlasmaOrdered By: Mounika Tee on 08-16-2023 Creatinine [Mass/Vol] 0.73 mg/dL 0.70-1.30 [facility] Drug Screen,Urineon 08-16-19 24 Amphetamine Screen,Urine Negative Normal Negative [facility] Comment on above: Performed By: #### T HY AB #### [facility] , Barbiturate Screen,Urine Negative Normal Negative [facility] Comment on above: Performed By: #### T HY AB #### [facility] , Benzodiazepines Screen,Urine Negative Normal Negative [facility] Comment on above: Performed By: #### T HY AB #### [facility] , Cannabinoid Screen,Urine Positive High Negative [facility] Comment on above: Result Comment: Thes e are unconfirmed results and should not be used for legal purposes. Drug Cut-Off Concentration: AMPH 1000 ng/mL POONAM 200 ng/mL DANNY 200 ng/mL COCM 300 ng/mL OP 300 ng/mL PCP 25 ng/mL THC 20 ng/mL PERFORMED BY: [facility] [address] [place] [address] PATHOLOGIST VACUUM TECHNICIAN NALINI GRAHAM M.D. Performed By: #### T HY AB #### [facility] , Cocaine Screen,Urine Negative Normal Negative [facility] Comment on above: Performed By: #### T HY AB #### [facility] , Opiate Screen,Urine Negative Normal Negative [facility] Comment on above: Performed By: #### T HY AB #### [facility] , Phencyclidine Screen,Urine Negative Normal Negative [facility] Comment on above: Performed By: #### T HY AB #### [facility] , Eosinophils Auto (Bld) [#/Vo l]Ordered By: Mounika Tee on 08-16-2023 Eosinophils (Bld) [#/Vol] 0.2 10*3/uL 0.0-0.45 [facility] Eosinophils/100 WBC Auto (Bl d)Ordered By: Mounika Tee on 08-16-2023 Eosinophils/100 WBC (Bld) 3.0 % . [facility] Erythrocyte distribution wid th Auto (RBC) [Ratio]Ordered By: Mounika Tee on 08-16-2023 Erythrocyte distribution width (RBC) [Ratio] 14.3 % 12.0-14.8 [facility] Ethanol [Mass/volume] in Ser um or PlasmaOrdered By: Mounika Tee on 08-16-2023 Ethanol [Mass/Vol] mg/dL [facility] Ethanol [Mass/Vol] TNP [facility] Comment on above: Test not performed Ethyl Alcohol Profileon 07-23 Ethanol [Mass/Vol] mg/dL Normal [facility] Comment on above: Performed By: #### C MP, CBC, ETOH #### [facility] [address] [place] [address] Percent Ethanol Not performed Normal [facility] Comment on above: Result Comment: PERF ORMED BY: [address] [place] [address] PATHOLOGIST VACUUM TECHNICIAN NALINI GRAHAM M.D. Performed By: #### C MP, CBC, ETOH #### [facility] [address] Globulin Calc (S) [Mass/Vol] Ordered By: Mounika Tee on 08-16-2023 Globulin (S) [Mass/Vol] 2.9 g/dL [facility] Glucose [Mass/volume] in Ser um or PlasmaOrdered By: Mounika Tee on 08-16-2023 Glucose [Mass/Vol] 96 mg/dL 70-100 [facility] Comment on above: ADA recommended refe rence rangeRandom Glucose Reference Range is dependent on time and content of last meal. Glucose of more than 200 mg/dL in a nonstressed, ambulatory subject supports the diagnosis of Diabetes Mellitus. Hematocrit Auto (Bld) [Volum e fraction]Ordered By: Mounika Tee on 08-16-2023 Hematocrit (Bld) [Volume fraction] 41.2 % 38.8-50.0 [facility] Hemoglobin [Mass/volume] in BloodOrdered By: Mounika eTe on 08-16-2023 Hemoglobin (Bld) [Mass/Vol] 14.1 g/dL 13.0-17.0 [facility] Ketones Auto test strip (U) [Mass/Vol]Ordered By: Mounika Tee on 08-16-2023 Ketones (U) [Mass/Vol] Negative Negative Fi [facility] Leukocytes [#/volume] correc nell for nucleated erythrocytes in Blood by Automated counOrdered By: Mounika Tee on 08-16-2023 WBC corrected for nucl RBC Auto (Bld) [#/Vol] 6.9 10*3/uL 4.1-10.5 [facility] Lymphocytes Auto (Bld) [#/Vo l]Ordered By: Mounika Tee on 08-16-2023 Lymphocytes (Bld) [#/Vol] 2.3 10*3/uL 1.00-4.8 [facility] Lymphocytes/100 WBC Auto (Bl d)Ordered By: Mounika Tee on 08-16-2023 Lymphocytes/100 WBC (Bld) 32.9 % . [facility] MCH Auto (RBC) [Entitic mass ]Ordered By: Mounika Tee on 08-16-2023 MCH (RBC) [Entitic mass] 31.3 pg 27.5-35.2 [facility] MCHC Auto (RBC) [Mass/Vol]Or dered By: Mounika Tee on 08-16-2023 MCHC (RBC) [Mass/Vol] 34.1 g/dL 32.5-35.6 [facility] MCV Auto (RBC) [Entitic vol] Ordered By: Mounika Tee on 08-16-2023 MCV (RBC) [Entitic vol] 91.9 fL 83.5-101 [facility] Monocyte distribution width [Entitic volume] in Blood by AutomatedOrdered By: Mounika Tee on 08-16-2023 Monocyte distribution width Auto (Bld) [Entitic vol] 20.63 % 0.00-20.00 [facility] Comment on above: For adults in ED, MD W > 20.0 may be associated with a higher risk of sepsis during the first 12 hrs of hospital admission Monocytes Auto (Bld) [#/Vol] Ordered By: Mounika Tee on 08-16-2023 Monocytes (Bld) [#/Vol] 0.4 10*3/uL 0.0-0.8 [facility] Monocytes/100 WBC Auto (Bld) Ordered By: Mounika Tee on 08-16-2023 Monocytes/100 WBC (Bld) 5.6 % . [facility] Neutrophils Auto (Bld) [#/Vo l]Ordered By: Mounika Tee on 08-16-2023 Neutrophils (Bld) [#/Vol] 4.0 10*3/uL 1.8-7.7 [facility] Neutrophils/100 WBC Auto (Bl d)Ordered By: Mounika Tee on 08-16-2023 Neutrophils/100 WBC (Bld) 57.3 % . [facility] Nitrite Test strip Ql (U)Ord ered By: Mounika Tee on 08-16-2023 Nitrite Ql (U) Negative Negative [facility] No Panel InformationOrdered By: Mounika Tee on 08-16-2023 Estimated GFR (CKD-EPI) > 60.0 mL/Min [facility] Creatinine Clearance (Chem 116.67 [facility] Nucleated erythrocytes [Pres ence] in Blood by Automated countOrdered By: Mounika Tee on 08-16-2023 Nucleated RBC Auto Ql (Bld) 0.0 /100{WBC} 0-0.5 [facility] Opiates [Presence] in Urine by Screen methodOrdered By: Mounika Tee on 08-16-2023 Opiates Screen Ql (U) Negative Negative [facility] Phencyclidine Screen Ql (U)O rdered By: Mounika Tee on 08-16-2023 Phencyclidine Ql (U) Negative Negative [facility] Platelet mean volume Auto (B ld) [Entitic vol]Ordered By: Mounika Tee on 08-16-2023 Platelet mean volume (Bld) [Entitic vol] 7.1 fL 6.6-10.1 [facility] Platelets Auto (Bld) [#/Vol] Ordered By: Mounika Tee on 08-16-2023 Platelets (Bld) [#/Vol] 301 10*3/uL 150-450 [facility] Potassium [Moles/volume] in Serum or PlasmaOrdered By: Mounika Tee on 08-16-2023 Potassium [Moles/Vol] 3.7 mmol/L 3.5-5.1 [facility] Protein Auto test strip (U) [Mass/Vol]Ordered By: Mounika Tee on 08-16-2023 Protein (U) [Mass/Vol] Negative Negative [facility] Protein [Mass/volume] in Ser um or PlasmaOrdered By: Mounika Tee on 08-16-2023 Protein [Mass/Vol] 6.9 g/dL 6.4-8.9 [facility] RBC Auto (Bld) [#/Vol]Ordere d By: Mounika Tee on 08-16-2023 RBC (Bld) [#/Vol] 4.49 10*6/uL 3.90-5.60 [facility] Serum or plasma albumin/glob ulin mass ratioOrdered By: Mounika Tee on 08-16-2023 Albumin/Globulin [Mass ratio] 1.4 {ratio} [facility] Serum or plasma anion gap de terminationOrdered By: Mounika Tee on 08-16-2023 Anion gap [Moles/Vol] 10.8 mmol/L 6.0-15.0 [facility] Sodium [Moles/volume] in Ser um or PlasmaOrdered By: Mounika Tee on 08-16-2023 Sodium [Moles/Vol] 138 mmol/L 136-145 [facility] Specific gravity Auto test s trip (U) [Rel density]Ordered By: Mounika Tee on 08-16-2023 Specific gravity (U) [Rel density] 1.009 1.001-1.030 [facility] Urea nitrogen [Mass/volume] in Serum or PlasmaOrdered By: Mounika Tee on 08-16-2023 Urea nitrogen [Mass/Vol] 9 mg/dL 7-25 [facility] Urinalysison 08-16-2023 Appearance (U) Clear Normal Clear [facility] Comment on above: Order Comment: Name Collection Type:: Clean-Voided Midstream Performed By: #### T HY AB #### [facility] , Bilirubin,Urine Negative Normal Negative [facility] Comment on above: Order Comment: Name Collection Type:: Clean-Voided Midstream Performed By: #### T HY AB #### [facility] , Color (U) Yellow Normal Yellow [facility] Comment on above: Order Comment: Name Collection Type:: Clean-Voided Midstream Performed By: #### T HY AB #### [facility] , Glucose Ql (U) Normal Normal Normal [facility] Comment on above: Order Comment: Name Collection Type:: Clean-Voided Midstream Performed By: #### T HY AB #### [facility] , Ketones Ql (U) Negative Normal Negative [facility] Comment on above: Order Comment: Name Collection Type:: Clean-Voided Midstream Performed By: #### T HY AB #### [facility] , Leukocyte esterase Test strip Ql (U) Negative Normal Negative [facility] Comment on above: Order Comment: Name Collection Type:: Clean-Voided Midstream Performed By: #### T HY AB #### [facility] , Nitrite,Urine Negative Normal Negative [facility] Comment on above: Order Comment: Name Collection Type:: Clean-Voided Midstream Performed By: #### T HY AB #### [facility] , Occult Blood,Urine Negative Normal Negative [facility] Comment on above: Order Comment: Name Collection Type:: Clean-Voided Midstream Result Comment: PERF ORMED BY: [facility] [address] [place] [address] PATHOLOGIST VACUUM TECHNICIAN NALINI GRAHAM M.D. Performed By: #### T HY AB #### [facility] , pH (U) 7.5 [pH] Normal 5.0-9.0 [facility] Comment on above: Order Comment: Name Collection Type:: Clean-Voided Midstream Performed By: #### T HY AB #### [facility] , Protein,Urine Negative Normal Negative [facility] Comment on above: Order Comment: Name Collection Type:: Clean-Voided Midstream Performed By: #### T HY AB #### [facility] , Specificy Soldier,Urine 1.009 Normal 1.001-1.030 [facility] Comment on above: Order Comment: Name Collection Type:: Clean-Voided Midstream Performed By: #### T HY AB #### [facility] , Urobilinogen,Urine Normal Normal Normal [facility] Comment on above: Order Comment: Name Collection Type:: Clean-Voided Midstream Performed By: #### T HY AB #### [facility] , Urine clarity by refractomet ry automatedOrdered By: Mounika Tee on 08-16-2023 Clarity Refractometry automated (U) Clear Clear [facility] Urine glucose measurement by automated test strip (mass/volume)Ordered By: Mounika Tee on 08-16-2023 Glucose Auto test strip (U) [Mass/Vol] Normal mg/dL Normal [facility] Urine hemoglobin detection b y automated test stripOrdered By: Mounika Tee on 08-16-2023 Hemoglobin Auto test strip Ql (U) Negative Negative [facility] Urine leukocyte esterase det ection by automated test stripOrdered By: Mounika Tee on 08-16-2023 Leukocyte esterase Auto test strip Ql (U) Negative Negative [facility] Urobilinogen Auto test strip (U) [Mass/Vol]Ordered By: Mounika Tee on 08-16-2023 Urobilinogen (U) [Mass/Vol] Normal mg/dL Normal [facility] WBC Auto (Bld) [#/Vol]Ordere d By: Mounika Tee on 08-16-2023 WBC (Bld) [#/Vol] 6.9 10*3/uL 4.1-10.5 [facility] pH Auto test strip (U)Ordere d By: Mounika Tee on 08-16-2023 pH (U) 7.5 [pH] 5.0-9.0 [facility] XR CHEST 1 VWon 08-09-2023 XR CHEST 1 VW XR CHEST 1 VW Single view chest History:chest pain Difficulty breathing, shortness of breath Comparison: 07/16/2013 Findings: Single portable view of the chest. Stable cardiomediastinal silhouette. No focal opacity, effusion or pneumothorax. Impression: No evidence of acute cardiopulmonary process. Finalized by Felix Nickerson MD on 08/08/2023 11:03 PM Normal [facility] Vital Signs Date Time Vital Sign Value Performing Clinician Faci lity 08-22-2023 07:30-0500 Body temperature 97.3 [degF] [facility] 08-22-2023 07:30-0500 Diastolic blood pressure 75 mm[Hg] [facility] 08-22-2023 07:30-0500 Heart rate 104 /min [facility] 08-22-2023 07:30-0500 Respiratory rate 16 /min [facility] 08-22-2023 07:30-0500 SaO2% (BldA) [Mass fraction] 96 % [facility] 08-22-2023 07:30-0500 Systolic blood pressure 110 mm[Hg] [facility] 08-19-2023 14:16-0500 Body height 177.8 cm [facility] 08-19-2023 09:52-0500 Body weight 77.11 kg [facility] 08-16-2023 14:18-0500 Body height 177.8 cm PHYSICIAN NO [facility] 08-16-2023 14:18-0500 Body temperature 97.7 [degF] PHYSICIAN NO [facility] 08-16-2023 14:18-0500 Body weight 80.3 kg PHYSICIAN NO [facility] 08-16-2023 14:18-0500 Diastolic blood pressure 104 mm[Hg] PHYSICIAN NO [facility] 08-16-2023 14:18-0500 Heart rate 74 /min PHYSICIAN NO [facility] 08-16-2023 14:18-0500 Respiratory rate 16 /min PHYSICIAN NO [facility] 08-16-2023 14:18-0500 SaO2% (BldA) [Mass fraction] 98 % PHYSICIAN NO [facility] 08-16-2023 14:18-0500 Systolic blood pressure 170 mm[Hg] PHYSICIAN NO [facility] Encounters Encounter Date Encounter Type Care Provider Facility Start: 09-04-2023 End: 09-04-2023 ambulatory NO PCP NO PCP [facility] Start: 09-02-2023 End: 09-03-2023 Emergency department patient visit MILES CORNEJO [facility] Start: 09-02-2023 End: 09-02-2023 Emergency department patient visit NO PCP [facility]CP [facility] [facility] Start: 09-01-2023 End: 09-01-2023 Emergency department patient visit NO PCP NO PCP [facility] Start: 08-16-2023 End: 08-22-2023 Evaluation and management of inpatient Leland Grajedaelaziz Facility:[facility] Start: 08-16-2023 Evaluation and management of inpatient PHYSICIAN NO [facility] Work Phone: Start: 08-16-2023 Non-patient / Non-visit [facility] Work Phone: Start: 08-08-2023 End: 08-10-2023 Emergency department patient visit CARLITO DIALLO [facility] Start: 11-26-2016 End: 11-26-2016 Ambulatory FABRIZIO SANTORO Facility: Plan of Treatment Date Care Activity Detail Author Start: 08-22-2023 [facility] Start: 08-19-2023 Referral to clinical desk clerk [facility] Start: 08-16-2023 Hospital admission [facility] Start: 08-16-2023 [facility] Patient Education Schizophrenia (DC) [facility] [place] Instructions [facility] Work Phone: Patient referral [facility] Work Phone: Payers Date Payer Category Payer Self-pay 2012 Medicare [id number] [id number] 1965 Unknown [id number] 2.16.8 [id number] 1965 Unknown [id number] 2.16.8 [id number] 1966 Unknown [id number] 2.16.8 [id number] 1966 Unknown [id number] 2.16.8 [id number] 1966 Unknown [id number] 2.16.8 [id number] 1966 Unknown [id number] 2.16.84 [id number] 1966 Unknown [id number] 2.16.84 [id number] 1958 Medicare [id number] Medicaid Medicaid [id number] Unknown [id number] 2.16.8 [id number] Social History Date Type Detail Facility Tobacco smoking stat [facility] Unknown if ever smoked [facility] Work Phone: Start: 1965 Sex Assigned At Male [facility] Start: 08-21-2023 Tobacco smoking stat [facility] Smoker (finding) [facility] Hospital Discharge instructions 08-22-2023 Note Date & Type Note Facility 08-22-2023 Hospital Discharg e instructions Additional Instructions Important Contact Information You can call [facility] at [phone] any time day or night if you have emergent questions or question regarding discharge instructions. If at any time you are feeling an increase in your psychiatric symptoms, call your physician or behavioral healthcare provider. If any time you have thoughts of harming yourself or others contact one of the following: Call 98-8 (available 11/02) Crisis Text Line (available 11/02) text 4HOPE to [phone] [facility] Hope Line (available 8 a.m. Midnight) call [phone] ([phone]) Will need to follow up with endocrinology as outpatient with elevated TSH, normal free T4, elevated thyroid antibodies - for evaluation for thyroid autoimmune disease Regular Diet No Activity Restrictions [facility] Work Phone: Chief complaint+Reason for visit Narrative Note Date & Type Note Facility Chief complaint+Reason for v isit Narrative Reason for Visit Agitation Hallucinations [facility] Work Phone: Chief complaint+Reason for visit Narrative Note Date & Type Note Facility Chief complaint+Reason for visit Narrative Reason for Visit Abnormal thyroid function test Agitation Depression Hallucinations Hx of myocardial infarction Unspecified psychosis [facility] Work Phone: Evaluation note Note Date & Type Note Facility Evaluation note Diagnosis Onset Date Agitation acute Hallucinations acute [facility] Work Phone: Evaluation note Note Date & Type Note Facility Evaluation note Diagnosis Onset Date Abnormal thyroid function test acute Agitation acute Depression acute Hallucinations acute Hx of myocardial infarction acute Unspecified psychosis acute [facility] Work Phone: Summary Purpose Family History No Family History Records FoundNo Family History Records FoundNo Family History Records Found Advance Directives No Advanced Directives Records Found Advance Directive Response Recorded Date/ Time Advance Directives No August 16, 2023 3:11pm Additional Source Comments (unrecognized sect ion and content) No Status Records FoundNo Status Records FoundNo Status Records Found INFORMATION SOURCE (unrecogn ized section and content) DATE CREATED AUTHOR 01/15/2018 [facility] DATE CREATED AUTHOR AUTHOR'S ORGANIZ ATION 08/29/2023 [facility] DATE CREATED AUTHOR AUTHOR'S ORGANIZ ATION 09/04/2023 [facility] Care Teams (unrecognized sec tion and content) Team Status: Active Member Role Status Dates PHYSICIAN NO FAMILY Primary Care Provider Active Team Status: Active Member Role Status Dates PHYSICIAN NO FAMILY Primary Care Provider Active Start: August 16, 2023 Mounika Tee APRN Emergency Provider Active Start: August 16, 2023 Tanner Navarrete MD Admit Provider, Atte nding Provider Active Start: August 16, 2023 Team Status: Active Member Role Status Dates PHYSICIAN NO FAMILY Primary Care Provider Active Start: August 16, 2023 Mounika Tee APRN Emergency Provider Active Start: August 16, 2023 Tanner Navarrete MD Admit Provider, Othe r Provider Active Start: August 16, 2023 Kelly Douglas , MARU Other Provider Active Star t: August 16, 2023 Sheryl Salazar , MARU Other Provider Active Start : August 16, 2023 Mitzi Guadarrama , MARU Other Provider Active Start: anuary 2023 Marialuisa Perla RN Other Provider Active Star t: August 16, 2023 Jacqueline Adler RN Other Provider Active Start : August 16, 2023 Debora Kenny , MARU Other Provider Active Start: uary 2023 Andry Adams MD Other Provider Active Start: anuary 2023 Sobeida Burciaga APRN Other Provider Active Start: August 16, 2023 Isaias Rodriguez DO Other Provider Active Start : August 16, 2023 Poli Lopez MD Other Provider Active Start : August 16, 2023 Roddy Serrano DO Other Provider Active Start: August 16, 2023 Rodo Millan MD Other Provider Active Start: August 16, 2023 Kassie Aj MD Other Provider Active Start : August 16, 2023 Los Cline MD Other Provider Active Start: anuary 2023 Urvashi Mckeon APRN Other Provider Active Start: August 16, 2023 Amos Malloy MD Other Provider Active Start: August 16, 2023 Gildardo Orellana MD Other Provider Active Start: uary 2023 Beto Sousa MD Other Provider Active Start: August 16, 2023 Shelly Castellanos MD Other Provider Active Start: August 16, 2023 Felix Ochoa DO Other Provider Active Start: August 16, 2023 Conor Parks MD Other Provider Active Start: 2023 Casey Osborne MD Other Provider Active Start: Jul Martine Hughes NP-C Other Provider Active St art: August 16, 2023 Dami Hirsch APRN Other Provider Active Star t: August 16, 2023 Gustabo Helton MD Other Provider Active Start: August 16, 2023 Bernabe Diamond MD Other Provider Active Start: 2023 Mariano Jean MD Other Provider Active Start: Jul Luciana Polo MD Other Provider Active Star t: August 16, 2023 Chandana Velasquez MD Other Provider Active Start: 2023 Ayanna Greco DO Other Provider Active Start: 2023 Portillo Decker DO Other Provider Active Start : August 16, 2023 Milton Ling DO Other Provider Active Sta rt: August 16, 2023 Zainab Pelletier APRN Other Provider Active Start: August 16, 2023 Dami Thapa DO Other Provider Active Start: August 16, 2023 Essie Squires MD Other Provider Active Sta rt: August 16, 2023 Angela Arboleda APRN Other Provider Active Start : August 16, 2023 Annie Cotter APRN Other Provider Active St art: August 16, 2023 Reg Church MD Other Provider Active Start: uary 2023 Timoteo Hung MD Other Provider Active S tart: August 16, 2023 Ila Andrew APRN Other Provider Active S tart: August 16, 2023 Carla Steiner DO Other Provider Active Start: August 16, 2023 Yeimi Whaley RN Other Provider Active Start: uary 2023 Jes Wharton RN Other Provider Active Star t: August 16, 2023 Alex Bentley MD Other Provider Active Start: uary 2023 Clay Lloyd MD Other Provider Active Start: August 16, 2023 Zainab Huntley MD Attending Provider, Other Provider Active Start: August 16, 2023 Goals (unrecognized section and content) Goals may be documented in a n alternate sectionGoals may be documented in an alternate section FOR RECORDS PERTAINING TO PATIENTS WHO ARE OR HAVE BEEN ENROLLED IN A CHEMICAL DEPENDENCY/SUBSTANCEABUSE PROGRAM, SOME INFORMATION MAY BE OMITTED. This clinical summary was aggregated from multiple sources. Caution should be exercised in using it in the provision of clinical care. This summary normalizes information from multiple sources, and as a consequence, information in this document may materially change the coding, format and clinical context of patient data. In addition, data may be omitted in some cases. CLINICAL DECISIONS SHOULD BE BASED ON THE PRIMARY CLINICAL RECORDS. [facility] [employer] [facility]. provides no warranty or guarantee of the accuracy or completeness of information in this document.
--- NOTE | 2023-09-06 03:00 | PC.NURSE ---
Pt. presents to ED via EMS for complaints of chest pain and hypothermia Pt. was seen at [place] ED 09/04 where he left AMA, represented at their ED 09/05 where he left again AMA around 2200. Pt. is known to be homeless and have extensive mental health history Pt. was picked up by EMS at the [facility] and requested to come here On arrival pt. complained of being cold and chest pain that felt like stabbing Once pt. was in room he stated that he already felt better This student nurse obtained vitals and EKG, where his temperature was 98.0 degrees Fahrenheit Pt. states that he was being disrespected at the [facility] and was the reason he left Pt. states he has been experiencing chest pain for 5 hours and states that he walked over 20 miles today Pt. explains he experiences depression, anxiety and bipolar Pt. was given order aspirin as well as snacks, hot chocolate and tea Pt. is resting in bed, denies any other needs at this time
--- NOTE | 2023-09-06 03:27 | XR_ITS ---
The [address] [address] Patient Name: YURI JAVIER MRN: [id number] date: 1965 Sex: M Assigned Patient Location: ER Current Patient Location: ER Accession/Order Number: [id number] Exam Date: 09/06/2023 03:40 Report Date: 09/06/2023 03:55 At the request of: CELENA MARKER Procedure: XR chest 1V XR chest 1V 09/06/2023 3:40 AM EST CLINICAL INDICATION: Chest pain and pneumonia COMPARISON: 06/18/2014 TECHNIQUE: Portable semiupright AP view of the chest. FINDINGS: There are no tubes or implants noted. The cardiomediastinal silhouette and pulmonary vasculature are within normal limits. Left basilar patchy airspace disease. No pneumothorax or pleural effusion. Osseous structures and soft tissues are within normal limits. XR/XR chest 1V IMPRESSION: Left basilar patchy airspace disease, more suggestive of atelectasis than pneumonia. Electronically authenticated by: NANCY DEL TORO Date: 09/06/2023 03:55
--- NOTE | 2023-09-06 03:28 | ED_ITS ---
HPI - General Adult General Chief complaint: Chest Pain Stated complaint: CHEST PAIN Time Seen by Provider: 09/06/23 02:51 Source: patient and other Source information: EMS Mode of arrival: ambulance History of Present Illness HPI narrative: This 57-year-old male who has been homeless for the past 2 months and has recently been at [facility] including earlier today was brought to the emergency department by EMS from [place] in [place]. He has been seen several times, at least 3, in the past 2 days at [place] and admitted briefly. He signed out AMA earlier today from [place]. He states that he is homeless because he was evicted from his apartment. He has been on the street for the past 2 months. He states for the past 2 days he has been walking at least 20 miles. He requested to be brought to this emergency department instead of being return to the [place] emergency department after being there several times in the past several days. He states he is a cardiac patient and had a heart attack at age 47 and has one coronary stent. He states he feels like there is a knife in his heart. He also has a cough with clear phlegm and thinks he may be developing pneumonia. He denies any other all or drug use. He does have a history of anxiety and depression. He was seen here earlier this year and became extremely argumentative and was escorted off of the property. He thinks he is hypothermic because he has been walking around in the freezing weather for the past several days. He states that he is one of about 200 homeless persons in the [place] area and the shelters are full. He denies that he is schizophrenic although when I asked him if he wanted anything, he states that he cant take anything from anyone because the next thing he knows, he will be thrown in snf, accused of stealing something. Related Data Home Medications Medication Instructions Recorded Confirmed aspirin 81 mg chewable tablet 09/06/23 venlafaxine 25 mg tablet mg 09/06/23 Allergies Allergy/AdvReac Type Severity Reaction Status Date / Time alcohol Allergy Unknown Verified 09/06/23 02:44 lamotrigine [From Lamictal] Allergy Unknown Verified 09/06/23 02:44 Opioids - Morphine Analogues Allergy Unknown Verified 09/06/23 02:44 paliperidone [From Invega] Allergy Unknown Verified 09/06/23 02:44 Review of Systems ROS Status of ROS 10 or more systems reviewed and unremark able except as noted in history and below [facility] Medical History (Updated 09/06/23 @ 06:19 by Lakia Caal MD) Depression ?F32.A - Depression, unspecified (ICD-10) Bipolar 1 disorder ?F31.9 - Bipolar disorder, unspecified (ICD-10) Heart attack ?I21.9 - Acute myocardial infarction, unspecified (ICD-10) Social History Smoking status: Current every day smoker Exam Narrative Exam Narrative: Nurses note and vital signs reviewed and patient is not hypoxic.He has a normal temperature, normal pulse and normal blood pressure he is not hypoxic General: Fairly well, adult male, no respiratory distress Skin: Warm, dry, no pallor noted. There is no rash noted. Head: Normocephalic, atraumatic Eye: Normal conjunctiva, no drainage, EOMI. PERRL Ears, Nose, Mouth, and Throat: oral mucosa is moist. Cardiovascular: Regular Rate and Rhythm S1S2, no murmurs, rubs or gallops Respiratory: Patient is in no distress, no accessory muscle use, lungs are clear to auscultation, no wheezing, rales or rhonchi Back: non-tender, no CVA tenderness bilaterally to percussion. GI: Normal bowel sounds, no tenderness to palpation, no masses appreciated. No rebound, guarding, or rigidity noted. Musculoskeletal: The patient has no evidence of calf tenderness, no pitting edema, symmetrical pulses noted bilaterally Neurological: A&O x4, normal speech, no focal deficits Psychiatric: Cooperative, somewhat paranoid and guarded Constitutional Vital Signs, click to edit/add: Last Vital Signs Temp 98 F 09/06/23 02:44 Pulse 95 H 09/06/23 05:40 Resp 18 09/06/23 05:40 BP 113/79 09/06/23 02:49 Pulse Ox 96 09/06/23 04:10 O2 Del Method Room Air 09/06/23 02:44 Course Vital Signs Vital signs: Vital Signs Pulse Rate 86 09/06/23 02:42 Respiratory Rate 9 L 09/06/23 02:42 Temperature 98 F 09/06/23 02:44 Pulse Rate 95 H 09/06/23 05:40 Respiratory Rate 18 09/06/23 05:40 Blood Pressure 113/79 09/06/23 02:49 Pulse Oximetry 96 09/06/23 04:10 Oxygen Delivery Method Room Air 09/06/23 02:44 Medical Decision Making MDM Narrative Medical decision making narrative: This 57-year-old homeless male is brought to emergency department by EMS after being at [place] emergency department and being admitted several times recently. He states he has a history of coronary artery disease after having a heart attack. He states he has been walking outside in the cold and feels hypothermic. His vital signs are stable here. He has a normal EKG. CXR is negative for acute findings. He was medicated with 324 mg baby aspirin and given warm fluids, something to eat and warm blankets. Cardiac workup was ordered and is reviewed and is normal. He'll be allowed to remain in this emergency department until daylight at which time he will be asked to leave and seek usp elsewhere. Medical Records Medical records narrative: The [address] [address] XRay Report Signed Patient: Vincent Javier MR#: [id number] : 1965 Acct:[id number] Age/Sex: 57 / M ADM Date: 09/06/23 Loc: ER Attending Dr: Ordering Physician: Lakia Caal Date of Service: 09/06/23 Procedure(s): XR chest 1V Accession Number(s): [id number] cc: Lakia Caal; Physician,Non-Staff M.D.~ The [address] [address] Patient Name: VINCENT JAVIER MRN: [id number] date: 1965 Sex: M Assigned Patient Location: ER Current Patient Location: ER Accession/Order Number: [id number] Exam Date: 09/06/2023 03:40 Report Date: 09/06/2023 03:55 At the request of: LAKIA CAAL Procedure: XR chest 1V XR chest 1V 09/06/2023 3:40 AM EST CLINICAL INDICATION: Chest pain and pneumonia COMPARISON: 06/18/2014 TECHNIQUE: Portable semiupright AP view of the chest. FINDINGS: There are no tubes or implants noted. The cardiomediastinal silhouette and pulmonary vasculature are within normal limits. Left basilar patchy airspace disease. No pneumothorax or pleural effusion. Osseous structures and soft tissues are within normal limits. XR/XR chest 1V IMPRESSION: Left basilar patchy airspace disease, more suggestive of atelectasis than pneumonia. Electronically authenticated by: NANCY DEL TORO Date: 09/06/2023 03:55 Lab Data Labs: Lab Results 09/06/23 Range/Units 03:47 WBC 7.0 (4.0-11.0) 10^3/uL RBC 4.25 L (4.70-6.10) 10^6/uL Hgb 13.2 L (14.0-18.0) g/dL Hct 39.7 L (42.0-54.0) % MCV 93.4 (80.0-94.0) fL MCH 31.1 (25.9-34.0) pg MCHC 33.2 (29.9-35.2) g/dL RDW 13.3 (11.0-15.0) % Plt Count 252 (150-450) 10^3/uL MPV 8.8 L (9.5-13.5) fL Neut % (Auto) 70.0 (43.0-75.0) % Lymph % (Auto) 18.2 L (20.5-60.0) % Gates % (Auto) 7.1 (1.7-12.0) % Eos % (Auto) 3.7 (0.9-7.0) % Baso % (Auto) 0.6 (0.2-2.0) % Neut # (Auto) 4.9 (1.4-6.5) 10^3/uL Lymph # (Auto) 1.3 (1.2-3.8) 10^3/uL Gates # (Auto) 0.5 (0.3-0.8) 10^3/uL Eos # (Auto) 0.3 (0.0-0.7) 10^3/uL Baso # (Auto) 0.0 (0.0-0.1) 10^3/uL Abs Immat Gran (auto) 0.03 (0.00-0.03) 10^3/uL Imm/Tot Granulo (auto) 0.4 (0.0-0.5) % Sodium 140 (136-145) mmol/L Potassium 3.8 (3.5-5.1) mmol/L Chloride 106 (98-107) mmol/L Carbon Dioxide 26.8 (21.0-32.0) mmol/L Anion Gap 11.0 BUN 18.0 (7.0-18.0) mg/dL Creatinine 0.89 (0.70-1.30) mg/dL Est GFR ( Amer) >60 (>=60) Est GFR (Non-Af Amer) >60 (>=60) BUN/Creatinine Ratio 20.2 Glucose 104 (74-106) mg/dL Calcium 8.6 (8.5-10.1) mg/dL Total Bilirubin 0.3 (0.2-1.0) mg/dL AST 28 (15-37) U/L ALT 34 (16-63) U/L Alkaline Phosphatase 91 (46-116) U/L Troponin I High Sens 44.6 (4.0-76.1) pg/mL Total Protein 7.2 (6.4-8.2) g/dL Albumin 3.3 L (3.4-5.0) g/dL Globulin 3.9 g/dL Albumin/Globulin Ratio 0.8 ECG Data Attestation: I personally reviewed and interpreted this ECG as follows: (Sinus rhythm at 86 beats for minute, normal axis, normal intervals, no acute ST segme nt elevation or T-wave inversion) Discharge Plan Discharge Chief Complaint: Chest Pain Clinical Impression: Homeless single person, Chest pain, non-cardiac Patient Disposition: Home, Self-Care Time of Disposition Decision: 06:18 Condition: Good Prescriptions / Home Meds: No Action venlafaxine 25 mg tablet aspirin 81 mg tablet,chewable Instructions: Noncardiac Chest Pain (ED) Stand Alone Forms: Portal Instructions Referrals: Physician,Non-Staff, MD [Primary Care Provider] - 1 week
[2023-09-06 04:01] LABS: Basophils Percent Auto 0.6 % (0.2-2.0); Eosinophils Absolute Auto 0.3 10^3/uL (0.0-0.7); Eosinophils Percent Auto 3.7 % (0.9-7.0); Hematocrit 39.7 % (42.0-54.0); Hemoglobin 13.2 g/dL (14.0-18.0); Immature Granulocytes Abs Auto 0.03 10^3/uL (0.00-0.03); Immature Granulocytes Pct Auto 0.4 % (0.0-0.5); Lymphocytes Absolute Auto 1.3 10^3/uL (1.2-3.8); Lymphocytes Percent Auto 18.2 % (20.5-60.0); Mean Corpuscular HGB Conc 33.2 g/dL (29.9-35.2); Mean Corpuscular Hemoglobin 31.1 pg (25.9-34.0); Mean Corpuscular Volume 93.4 fL (80.0-94.0); Mean Platelet Volume 8.8 fL (9.5-13.5); Monocytes Absolute Auto 0.5 10^3/uL (0.3-0.8); Monocytes Percent Auto 7.1 % (1.7-12.0); Neutrophils Absolute Auto 4.9 10^3/uL (1.4-6.5); Platelet Count 252 10^3/uL (150-450); Red Blood Count 4.25 10^6/uL (4.70-6.10); Red Cell Distribution Width 13.3 % (11.0-15.0)
[2023-09-06 04:13] LABS: Alanine Aminotransferase 34 U/L (16-63); Albumin Globulin Ratio 0.8; Albumin Level 3.3 g/dL (3.4-5.0); Alkaline Phosphatase 91 U/L (46-116); Aspartate Amino Transferase 28 U/L (15-37); BUN Creatinine Ratio 20.2; Bilirubin Total 0.3 mg/dL (0.2-1.0); Calcium 8.6 mg/dL (8.5-10.1); Carbon Dioxide 26.8 mmol/L (21.0-32.0); Chloride 106 mmol/L (98-107); Estimated GFR (African America >60 (>=60); Estimated GFR (Non-African Ame >60 (>=60); Globulin 3.9 g/dL; Glucose 104 mg/dL (74-106); Potassium 3.8 mmol/L (3.5-5.1); Sodium 140 mmol/L (136-145); Total Protein 7.2 g/dL (6.4-8.2)
[2023-09-06 04:15] LABS: Troponin I High Sensitivity 44.6 pg/mL (4.0-76.1)
[2023-09-06] MEDS: ASPIRIN 81 MG TAB.CHEW 324 MG PO (04:36)
[2023-09-06] MEDS: GUAIFENESIN 200 MG/10 ML LIQUID PO (05:53)
--- NOTE | 2023-09-06 06:37 | PC.NURSE ---
Pt. was provided phone to call for a ride, states at 6:30 that his ride will be here in an hour. Pt. was provided discharge instructs and instructed to follow up with HCP one week from today. Iv was discontinued by this student nurse Pt. was directed to sit in the waiting room to wait for his ride, Pt. was able to ambulate to the ED waiting room. Pt. denies any further needs or questions at this time.
== END 2023-09-06 06:37 | disposition home or self-care (01) ==
PROVIDERS: Emergency Provider Emergency Medicine
DX: R07.89 Other chest pain (principal); Z59.00 Homelessness unspecified; I25.2 Old myocardial infarction; Z95.5 Presence of coronary angioplasty implant and graft; F41.9 Anxiety disorder, unspecified; Z79.899 Other long term (current) drug therapy; Z79.82 Long term (current) use of aspirin; F31.9 Bipolar disorder, unspecified; F17.210 Nicotine dependence, cigarettes, uncomplicated; I25.10 Atherosclerotic heart disease of native coronary artery without angina pectoris
CPT/HCPCS: 36415; 71045; 80053; 84484; 85025; 85730; 93005; 99284